=== PATIENT | male | born 1965 | race Caucasian/White ===

== ENCOUNTER 2016-05-24 22:56 | Emergency (ER) | payer BC, OTHER ==
[~2016-05-24 22:56] MED LIST: ACETAMINOPHEN; ACETAMINOPHEN PO; ALPRAZOLAM PO; AMOXICILLIN; CELEXA; CERTAGEN PO; CIPRO PO; CLONIDINE; CLONIDINE PO; DEPAKOTE PO; FLEXERIL10 MG PO; FOLIC ACID PO; GABAPENTIN400 MG PO; IBUPROFEN800 MG PO; LEVAQUIN PO; LIBRIUM; LIBRIUM PO; LORTAB 7.5-5001 TAB PO; MAALOX SUSPENSI30 ML; MAALOX SUSPENSI30 ML PO; MILK OF MAGNESIA; MULTI-VITAMIN1 TAB PO; NEURONTIN; NEURONTIN PO; NICOTINE T1 PATCH .2; NICOTINE T1 PATCH .2 TOP; NICOTINE TRANSD14 MG EXT; OMEPRAZOLE20 M2 PO; OXAZEPAM15 MG PO; PAXIL PO; PERCOCET 7.5/321 TAB PO; PERCOCET5/325 PO; PHENERGAN PR; PHENERGAN W/CO120 ML PO; THIAMINE; THIAMINE HCL100 MG PO; TRAZODONE; TRAZODONE PO; VICODIN 5/1 TAB 5/50 PO; VICODIN 5/500 T1 TAB PO
[2016-05-24 23:44] LABS: BASOPHIL# 0.1 X10e3 (0-0.3); BASOPHIL% 0.8 % (0-2.5); EOSINOPHIL# 0.3 X10e3 (0-0.7); EOSINOPHIL% 1.8 % (0.0-7.0); HEMATOCRIT 52.1 % (38.0-50.0); HEMOGLOBIN 17.2 gm/dL (13.0-16.0); LYMPHOCYTE# 2.8 X10e3 (1.0-3.5); MEAN CELL VOLUME 88.9 FL (83-96); MEAN CORPUSCULAR HEMOGLOBIN 29.4 PG (28-34); MEAN CORPUSCULAR HGB CONC 33.1 g/dL (30-36); MEAN PLATELET VOLUME 7.6 FL (6.5-11.5); MONOCYTE# 1.1 X10e3 (0-1.0); MONOCYTE% 7.7 % (3.0-12.0); NEUTROPHIL# 9.7 X10e3 (1.5-7.1); NEUTROPHIL% 69.7 % (40-75); PLATELET COUNT 247 X10e3 (140-420); RED BLOOD COUNT 5.86 X10e (3.90-5.60); RED CELL DISTRIBUTION WIDTH 14.2 % (11.0-15.5)
[2016-05-24 23:45] LABS: DIFF IND NO
[2016-05-24 23:59] LABS: INR 1.1; PROTHROMBIN TIME (PATIENT) 11.1 SECONDS (9.6-11.5)
[2016-05-25 00:08] LABS: ALBUMIN SERUM 4.5 g/dL (3.5-5.0); ALKALINE PHOSPHATASE 67 U/L (32-92); ALT (SGPT) 31 U/L (10-40); AST (SGOT) 30 U/L (10-42); BILIRUBIN,TOTAL 0.6 mg/dL (0.2-2.0); BLOOD UREA NITROGEN 18 mg/dL (9-23); CALCIUM SERUM 9.1 mg/dL (8.4-10.2); CARBON DIOXIDE 25 mmol/L (22-31); CHLORIDE 101 mmol/L (100-111); GLOM FILT RATE Estimated 86.2 mL/min (>60); GLUCOSE FASTING 78 mg/dL (70-110); POTASSIUM 3.9 mmol/L (3.5-5.1); PROTEIN TOTAL SERUM 7.4 g/dL (6.0-8.3); SODIUM 137 mmol/L (135-145)
[2016-05-25 00:16] LABS: ALCOHOL BLOOD <5 mg/dL ([, 0]); BILIRUBIN, DIRECT 0.1 mg/dL (0.0-0.2); BILIRUBIN,INDIRECT 0.5 mg/dL (0.0-0.9)
== END 2016-05-25 01:00 | disposition home or self-care (01) ==
LOC: CED 22:56
PROVIDERS: Emergency Medicine
DX: F10.10 Alcohol abuse, uncomplicated (principal); F17.210 Nicotine dependence, cigarettes, uncomplicated; Z88.8 Allergy status to other drugs, medicaments and biological substances
CPT/HCPCS: 36415; 80048; 80076; 85025; 85610; 96361; 96374; 96375; 99284; G0480; J2060; J2405

== ENCOUNTER 2016-05-25 09:33 | Inpatient (IN) | payer OTHER ==
--- NOTE | ~2016-05-25 | DS ---
Unit #: [id number] #: [id number] Patient: RAFIQ GREGG [id number] [place] [address] [id number] MR#: [id number] NAME: RAFIQ GREGG ROOM: P180 Age: 51 Sex: M Admission Date: 05/25/2016 : 1965 Discharge Date: 05/26/2016 Attending Physician: Aníbal Keating M.D. Primary Care Physician: Generic Doctor Not In System DISCHARGE SUMMARY REASON FOR ADMISSION Rafiq is a 51-year-old man with a long history of alcohol dependence. He came in reporting a recent relapse. He was brought in by his AA sponsor for detox prior to returning to outpatient treatment. DIAGNOSTIC STUDIES LABORATORY RESULTS: None obtained. HOSPITAL COURSE The patient was admitted and placed on alcohol detox protocol. He had minimal detox symptomatology, in contrast to previous admissions, and continued on Celexa for depression without change. He had a bright affect and good mood on the date of discharge, and was once again able to contract for safety with no suicidal ideation, intent, or plan. DISCHARGE DIAGNOSES AXIS I: Alcohol dependence with withdrawal, uncomplicated, F10.230; major depression. AXIS II: No diagnosis. AXIS III: History of withdrawal seizures. AXIS IV: AXIS V: DISCHARGE INSTRUCTIONS Follow up with AA and primary care physician. DISCHARGE MEDICATIONS Celexa 40 mg daily for depression. CONDITION AT DISCHARGE Improved. PROGNOSIS Good. DIET AND ACTIVITY Ad kait. Dictated by... Aníbal Keating M.D. Unit #: [id number] #: [id number] Patient: RAFIQ GREGG MR/modl TD: 07/05/2016 23:33 JOB #: [id number] DISCHARGE SUMMARY Page 1 of 1 X Aníbal Keating MD X DISCHARGE SUMMARY
--- NOTE | ~2016-05-25 | HP ---
Unit #: [id number] #: [id number] Patient: RAFIQ GREGG [id number] [place] [address] [id number] MR#: [id number] NAME: RAFIQ GREGG ROOM: P180 Age: 51 Sex: M Admission Date: 05/25/2016 : 1965 Attending Physician: Aníbal Keating M.D. Admitting Physician: Aníbal Keating M.D. Primary Care Physician: Latonya Doctor Not In System HISTORY AND PHYSICAL HISTORY OF PRESENT ILLNESS Rafiq is a 51 year old admitted to [facility] because of his abuse of alcohol. PAST MEDICAL HISTORY 1. Long history of alcohol abuse. 2. History of withdrawal seizures. PAST SURGICAL HISTORY 1. Right shoulder 2. Right boxers fracture 3. Inguinal hernia repair 4. Bilateral knees 5. Cholecystectomy 6. Fractured left wrist ALLERGIES No known drug allergies. SOCIAL HISTORY Smokes one pack per day. Drinks a case of beer on a daily basis. Denies illicit drug use. FAMILY HISTORY Medically noncontributory. REVIEW OF SYSTEMS CONSTITUTIONAL: No fever or chills. HEENT: Denies any sore throat, ear pain or runny nose. CARDIOVASCULAR: Denies chest pain, irregular heart rhythm or palpitations. CHEST: Denies shortness of breath or cough. No hemoptysis. GASTROINTESTINAL: Denies nausea, vomiting, diarrhea or chronic constipation. ENDOCRINE: Denies history of increased thirst or urination. No recent significant weight loss or gain. GENITOURINARY: Denies dysuria, frequency, or hematuria. SKIN: Denies any rashes. HEMATOLOGIC: Denies history of increased bleeding or bruising. MUSCULOSKELETAL: Denies any hot, swollen joints. No generalized muscle pain. NEUROLOGIC: Denies problems with vision or speech. No frequent, severe headaches. No numbness, tingling or weakness in any extremities. Denies Unit #: [id number] #: [id number] Patient: RAFIQ GREGG loss of bladder or bowel control. CURRENT MEDICATIONS 1. Detox protocol 2. Celexa 40 mg q day PHYSICAL EXAMINATION GENERAL: Alert, well-nourished, in no apparent distress. VITAL SIGNS: Blood pressure 140/100, heart rate 80, respirations 16, temperature 98.6. WEIGHT: 215 pounds. HEIGHT: 5'11". SKIN: Warm and dry without rash or lesion. HEENT: Normocephalic. TMs not viewed. Oral and nasal passages clear. Conjunctivae clear. Pupils equal, round and reactive to light and accommodation. Extraocular movements intact. NECK: Supple without lymphadenopathy or thyromegaly. HEART: Regular rate and rhythm without murmur. LUNGS: Clear. ABDOMEN: Soft, nontender. : Not done. EXTREMITIES: No evidence of cyanosis, clubbing or edema. Moves all extremities without focal deficit. NEUROLOGICAL: Grossly within normal limits. Cranial Nerves: II: Visual kingston are intact. III, IV AND : Extraocular movements are intact. Pupils are equal, round and reactive to light. V: Facial sensation is grossly normal. VII: Facial movements and expression are normal. VIII: Auditory acuity grossly intact. IX, X: Uvula is midline. Phonation is normal. XI: Patient shrugs shoulders and turns head normally. XII: Tongue protrudes in the midline. Sensory and Motor Function: Sensory and motor sensation is grossly normal. Motor: moves all extremities well. Coordination: Gait is normal. Deep Tendon Reflexes: Intact. IMPRESSION Psychiatric admission RECOMMENDATIONS PSYCHIATRIC: Per psychiatrist. MEDICAL: I see no contraindications to participating in facility's activities. MEDICAL PROGNOSIS Good. MEDICAL CONDITION Stable. Dictated by... Lillie Fernandez P.A.-C. for Pollo Sue M.D. Unit #: [id number] #: [id number] Patient: RAFIQ GREGG CHANELLE ELLIS/mckenna TD: 05/26/2016 03:09 JOB #: [id number] HISTORY AND PHYSICAL Page 1 of 1 X Lillie Fernandez HISTORY AND PHYSICAL
[2016-05-26 09:49] LABS: BASOPHIL# 0.1 X10e3 (0-0.3); BASOPHIL% 0.6 % (0-2.5); EOSINOPHIL# 0.3 X10e3 (0-0.7); EOSINOPHIL% 3.5 % (0.0-7.0); HEMATOCRIT 49.6 % (38.0-50.0); HEMOGLOBIN 16.6 gm/dL (13.0-16.0); LYMPHOCYTE# 1.7 X10e3 (1.0-3.5); LYMPHOCYTE% 20.3 % (17.0-45.0); MEAN CELL VOLUME 88.8 FL (83-96); MEAN CORPUSCULAR HEMOGLOBIN 29.7 PG (28-34); MEAN CORPUSCULAR HGB CONC 33.4 g/dL (30-36); MONOCYTE# 0.7 X10e3 (0-1.0); MONOCYTE% 8.3 % (3.0-12.0); NEUTROPHIL# 5.8 X10e3 (1.5-7.1); NEUTROPHIL% 67.3 % (40-75); PLATELET COUNT 207 X10e3 (140-420); RED BLOOD COUNT 5.59 X10e (3.90-5.60); RED CELL DISTRIBUTION WIDTH 14.8 % (11.0-15.5); WHITE BLOOD COUNT 8.6 X10e3 (4.0-10.5)
[2016-05-26 09:58] LABS: ALBUMIN SERUM 3.8 g/dL (3.5-5.0); BILIRUBIN,TOTAL 0.6 mg/dL (0.2-2.0); BUN/CREATININE RATIO 16.66; CALCIUM SERUM 9.3 mg/dL (8.4-10.2); CREATININE SERUM 0.9 mg/dL (0.6-1.4); GLOM FILT RATE Estimated 97.9 mL/min (>60); POTASSIUM 4.5 mmol/L (3.5-5.1); PROTEIN TOTAL SERUM 6.2 g/dL (6.0-8.3)
[2016-05-26 10:05] LABS: DIFF IND NO
[2016-05-26 10:11] LABS: URINE APPEARANCE CLEAR; URINE BILIRUBIN NEG (NEG); URINE BLOOD NEG (NEG); URINE COLOR YELLOW; URINE GLUCOSE NEG (NEG); URINE KETONE NEG (NEG); URINE LEUKOCYTE ESTERASE NEG (NEG); URINE NITRATE NEG (NEG); URINE PH 5.5 (5-8); URINE PROTEIN NEG (NEG); URINE SPECIFIC GRAVITY 1.015 (1.003-1.035); URINE UROBILINOGEN 0.2 MG/DL (NEG)
[2016-05-26 10:37] LABS: AMPHETAMINE NEG (NEG); BARBITURATES NEG (NEG); BENZODIAZEPINES POS (NEG); COCAINE NEG (NEG); MARIJUANA NEG (NEG); OPIATES NEG (NEG); TRICYCLIC ANTIDEPRESSANTS NEG (NEG); U METHADONE NEG (NEG)
[2016-05-29 01:21] LABS: HA AB IGM (HEPPAN) Nonreactive (()); HB CORE AB IGM (HEPPAN) Nonreactive (Nonreactive); HB S AG (HEPPAN) Nonreactive (Nonreactive); HEP C AB (HEPPAN) Nonreactive (Nonreactive); HEP C AB SIGNAL TO CUTOFF 0.01 ratio (<1.00)
== END 2016-05-26 12:30 | disposition home or self-care (01) | DRG 897 ==
LOC: P1E 09:33
PROVIDERS: Psychiatry & Neurology Psychiatry
PROC: HZ2ZZZZ Detoxification Services for Substance Abuse Treatment (ICD-10-PCS; principal; 2016-05-25)
DX: F10.20 Alcohol dependence, uncomplicated (principal); R45.851 Suicidal ideations; F17.210 Nicotine dependence, cigarettes, uncomplicated; F32.9 Major depressive disorder, single episode, unspecified
CPT/HCPCS: 80053; 80074; 80307; 81003; 85025; 86592; 87806

== ENCOUNTER 2016-07-01 11:56 | Emergency (ER) | payer BC, OTHER ==
[2016-07-01 13:29] LABS: URINE SOURCE CLEAN CATCH
[2016-07-01 13:31] LABS: BASOPHIL# 0.1 X10e3 (0-0.3); BASOPHIL% 1.3 % (0-2.5); EOSINOPHIL# 0.2 X10e3 (0-0.7); EOSINOPHIL% 2.4 % (0.0-7.0); HEMATOCRIT 46.7 % (38.0-50.0); HEMOGLOBIN 15.6 gm/dL (13.0-16.0); LYMPHOCYTE% 22.3 % (17.0-45.0); MEAN CELL VOLUME 86.5 FL (83-96); MEAN CORPUSCULAR HGB CONC 33.5 g/dL (30-36); MEAN PLATELET VOLUME 7.8 FL (6.5-11.5); MONOCYTE# 0.7 X10e3 (0-1.0); MONOCYTE% 7.5 % (3.0-12.0); NEUTROPHIL# 5.9 X10e3 (1.5-7.1); NEUTROPHIL% 66.5 % (40-75); PLATELET COUNT 254 X10e3 (140-420); RED CELL DISTRIBUTION WIDTH 14.1 % (11.0-15.5); WHITE BLOOD COUNT 8.8 X10e3 (4.0-10.5)
[2016-07-01 13:33] LABS: DIFF IND NO
[2016-07-01 13:33] LABS: URINE APPEARANCE CLEAR; URINE BILIRUBIN NEG (NEG); URINE BLOOD NEG (NEG); URINE COLOR YELLOW; URINE GLUCOSE NEG (NEG); URINE KETONE NEG (NEG); URINE LEUKOCYTE ESTERASE NEG (NEG); URINE NITRATE NEG (NEG); URINE PROTEIN NEG (NEG); URINE SPECIFIC GRAVITY 1.017 (1.003-1.035); URINE UROBILINOGEN 0.2 MG/DL (NEG)
[2016-07-01 13:43] LABS: CULTURE INDICATED? NO
[2016-07-01 14:01] LABS: ALBUMIN SERUM 4.2 g/dL (3.5-5.0); BILIRUBIN, DIRECT 0.1 mg/dL (0.0-0.2); BILIRUBIN,INDIRECT 0.2 mg/dL (0.0-0.9); BILIRUBIN,TOTAL 0.3 mg/dL (0.2-2.0); BUN/CREATININE RATIO 17.14; CREATININE SERUM 0.7 mg/dL (0.6-1.4); GLOM FILT RATE Estimated 108.5 mL/min (>60); POTASSIUM 3.8 mmol/L (3.5-5.1); PROTEIN TOTAL SERUM 6.9 g/dL (6.0-8.3)
== END 2016-07-01 16:14 | disposition home or self-care (01) ==
LOC: CED 11:56
PROVIDERS: Emergency Medicine
DX: M13.0 Polyarthritis, unspecified (principal); Z98.890 Other specified postprocedural states
CPT/HCPCS: 36415; 80048; 80076; 81003; 83880; 85025; 99283

== ENCOUNTER 2016-09-12 22:00 | Inpatient (IN) | payer OTHER ==
[~2016-09-12] VITALS: Ht 180.3 cm; Wt 87.5 kg
--- NOTE | ~2016-09-12 | PA ---
Unit #: [id number] #: [id number] Patient: RAFIQ GREGG [id number] [place] [address] [id number] I MR#: [id number] NAME: RAFIQ GREGG ROOM: P207 Age: 51 Sex: M Admission Date: 09/12/2016 : 1965 Date of Assessment: 09/13/2016 Attending Physician: Aníbal Keating M.D. Admitting Physician: Aníbal Keating M.D. Primary Care Physician: Drew Bermudez M.D. PSYCHIATRIC ASSESSMENT DATE OF SERVICE 09/13/2016. INFORMANTS The patient, reliable and OLOP reliable. CHIEF COMPLAINT Sobriety and SI. HISTORY OF PRESENT ILLNESS Rafiq Gregg is a 51-year-old man, who reports he recently broke up with a girlfriend due to her inability to stop using drugs. He relapsed when he met her and said that he had felt suicidal and wanted to get down to the bridge and jump off. He was unable to contract for safety and was admitted for stabilization and detox. PAST PSYCHIATRIC HISTORY Last admission to this facility was in 05/2016. He has a long history of alcohol dependence with outpatient compliance. FAMILY PSYCHIATRIC HISTORY There is an extensive family history of alcoholism. SOCIAL HISTORY The patient has erratic housing. 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 PAST MEDICAL HISTORY No current medical problems. MEDICATIONS None currently. ALLERGIES No known medication allergies. SUBSTANCE ABUSE HISTORY The patient has a long and well-documented history of alcohol, marijuana, cocaine, and opioid abuse. MENTAL STATUS EXAMINATION Rafiq presented as a disheveled man, appearing older than his stated Unit #: [id number] #: [id number] Patient: RAFIQ GREGG age. He had difficulty awakening for the examination and only a few words were able to be exchanged before he would fall back asleep. His mood appeared depressed with a flat affect. He appeared alert and fully oriented with no psychosis, but it was difficult to assess given his difficulty awakening. A full mental status examination will be attempted when the patient is able to participate. ASSETS AND LIABILITIES The patient is in general good health and knows local resources. Liabilities include difficulty maintaining sobriety and erratic housing and income. ADMITTING DIAGNOSES AXIS I: Alcohol dependence with withdrawal, uncomplicated, F10.230 and major depressive disorder. AXIS II: No diagnosis. AXIS III: History of chronic pain. AXIS IV: AXIS V: PSYCHIATRIC PLAN Carlos was admitted and placed on suicide precautions and the alcohol detox protocol. Celexa and Neurontin will be restarted, but his oral opiates will be discontinued during the detox. He will enroll in dual diagnosis groups and activities. A physical examination and laboratory studies will be ordered and reviewed. TREATMENT GOALS Resolution of SI, establishment of sobriety, improvement in insight, and improvement in coping skills. DISCHARGE PLANNING Follow up with primary care physician and AA. ESTIMATED LENGTH OF STAY 5 days. Dictated by... Aníbal Keating M.D. ROSA M/jake TD: 09/13/2016 14:03 JOB #: [id number] PSYCHIATRIC ASSESSMENT Page 1 of 1 X Aníbal Keating MD X PSYCHIATRIC ASSESSMENT
--- NOTE | ~2016-09-12 | HP ---
Unit #: [id number] #: [id number] Patient: ERWIN GREGG [id number] [place] [address] [id number] MR#: [id number] NAME: ERWIN GREGG ROOM: P207 Age: 51 Sex: M Admission Date: 09/12/2016 : 1965 Attending Physician: Aníbal Keating M.D. Admitting Physician: Aníbal Keating M.D. Primary Care Physician: Drew Bermudez M.D. HISTORY AND PHYSICAL REASON FOR ADMISSION Acute psychiatric inpatient admission. HISTORY OF PRESENT ILLNESS The patient has increased depression, feelings of hopelessness. Apparently, his girlfriend has been using IV drugs, difficulty at home, prior history of suicidal attempt. PAST MEDICAL HISTORY Substance abuse, pain pills, alcohol, tobacco. FAMILY HISTORY Depression, anxiety, social history, tobacco, alcohol, opiates. HOME MEDICATIONS Oxycodone, Celexa, gabapentin. REVIEW OF SYSTEMS Please see HPI. Twelve point otherwise negative except for those positive noted in the HPI. PHYSICAL EXAMINATION GENERAL: Awake, alert, oriented to person, place, and time. Well built, well nourished. Does not appear to be in any acute distress. VITAL SIGNS: Temperature 98.3, blood pressure 141/100, respiratory rate 20, and pulse 120. HEAD: Atraumatic. Normocephalic. EYES: Bilateral extraocular muscles are normal. Pupils equal, reactive to light and accommodation. Sclerae are normal. No jaundice. NECK: Neck is supple. No neck rigidity. No thyromegaly. No carotid bruit. No JVD. Oral mucosa is moist. CHEST: Bilateral vesicular breathing. Clear to auscultation. No basilar rales. CARDIOVASCULAR: S1 and S2 normal. No murmur, no gallop, no rub. ABDOMEN: Soft, nontender. No organomegaly. Bowel sounds are normal. No hernia, no masses, no rebound, no guarding. EXTREMITIES: No pitting edema. No calf tenderness. Extremity pulses, including dorsalis pedis, have good volume. BACK: Normal spine curvature. No spine tenderness. No costovertebral angle tenderness. ROAD ENGINEER: Cranial nerves normal bilaterally. Motor function bilaterally symmetric and normal. Sensory system normal. SKIN: Warm and dry. Unit #: [id number] #: [id number] Patient: ERWIN GREGG INITIAL IMPRESSION Acute psychiatric inpatient admission. PLAN As per psychiatrist, medical condition stable, medical prognosis is fair. There are no medical contraindications to the patient participating in activities while here at [facility]. If his blood pressure does remain persistently elevated, low-dose Norvasc 5 mg p.o. daily may be considered, especially if his systolic is greater than 130 x48 hours. Dictated by... Pollo Sue M.D. KIEL/jake TD: 09/13/2016 18:12 JOB #: [id number] HISTORY AND PHYSICAL Page 1 of 1 X Pollo Sue MD X HISTORY AND PHYSICAL
[2016-09-13 12:58] LABS: AMPHETAMINE POS (NEG); BARBITURATES POS (NEG); BENZODIAZEPINES POS (NEG); COCAINE NEG (NEG); MARIJUANA NEG (NEG); OPIATES POS (NEG); TRICYCLIC ANTIDEPRESSANTS NEG (NEG); U METHADONE NEG (NEG)
== END 2016-09-14 01:57 | disposition short-term general hospital (02) | DRG 897 ==
LOC: P2S 22:24
PROVIDERS: Psychiatry & Neurology Psychiatry
PROC: HZ2ZZZZ Detoxification Services for Substance Abuse Treatment (ICD-10-PCS; principal; 2016-09-12)
DX: F10.230 Alcohol dependence with withdrawal, uncomplicated (principal); F32.9 Major depressive disorder, single episode, unspecified; Z81.8 Family history of other mental and behavioral disorders
CPT/HCPCS: 80307; J2550